=== PATIENT | male | born 1970 | race Two or more races ===

== ENCOUNTER 2022-12-07 12:57 | Inpatient (IN) | payer OTHER ==
[~2022-12-07] VITALS: Ht 172.7 cm; Wt 100.0 kg
[2022-12-07] MEDS ORDERED: SODIUM CHLORIDE 0.9% 1,000 ML IV ONE (13:15)
[2022-12-07 13:43] LABS: BASOPHILS % 0.1 % (0.0-2.0); HEMATOCRIT. 25.7 % (42.0-52.0); HEMOGLOBIN. 8.8 g/dL (14.0-18.0); LYMPHOCYTES % 9.2 % (20.0-50.0); MEAN CORPUSCULAR HEMOGLOBIN 36.4 pg (28.0-32.0); MEAN CORPUSCULAR VOLUME 106.2 fL (80.0-94.0); MEAN PLATELET VOLUME 7.5 fl (7.4-10.4); MONOCYTES % 5.6 % (2.0-8.0); NEUTROPHILS % 85.1 % (40.0-76.0); PLATELET 168 x1000/uL (130-400); RED BLOOD CELL COUNT 2.42 mill/uL (4.7-6.1); RED CELL DISTRIBUTION WIDTH 14.6 % (11.6-14.6)
[2022-12-07 13:53] LABS: CHLORIDE 99 mEq/L (98-107)
[2022-12-07 14:04] LABS: ETHANOL BLOOD < 10 mg/dL
[2022-12-07 14:07] LABS: INR 1.8; PROTHROMBIN TIME 18.5 sec (9.6-11.0)
[2022-12-07] MEDS ORDERED: FUROSEMIDE 40MG/4ML VIAL IVP NR (14:15)
[2022-12-07] MEDS ORDERED: SODIUM BICARBONATE 8.4% 1 MEQ/ML 50ML SYR IV NR (14:15)
[2022-12-07] MEDS ORDERED: ALBUTEROL (0.083%) 2.5MG/3ML NEB HHN NR (14:15)
[2022-12-07] MEDS ORDERED: LACTULOSE 20G/30ML UDC PO NR (14:30)
[2022-12-07] MEDS ORDERED: ONDANSETRON HCL 4MG/2ML INJ IV PRN (16:30)
[2022-12-07] MEDS ORDERED: DIPHENHYDRAMINE 50MG/ML VIAL IV PRN (16:30)
[2022-12-07] MEDS ORDERED: LORAZEPAM 2MG/ML CPJ IV PRN (16:30)
[2022-12-07] MEDS ORDERED: CLONIDINE 0.1MG TABLET PO PRN (16:30)
[2022-12-07] MEDS: MVI, ADULT NO.1 10 ML, FOLIC ACID 1 MG, THIAMINE HCL 100 MG in SODIUM CHLORIDE 0.9% 1,0... IV SCH ×4 (17:00)
[2022-12-07 19:25] LABS: CLARITY URINE CLEAR (CLEAR); COLOR URINE DARK YELLOW (YELLOW); KETONES URINE 1+ (NEGATIVE); LEUKOCYTE ESTERASE URINE NEGATIVE (NEGATIVE); NITRITE URINE NEGATIVE (NEGATIVE); OCCULT BLOOD URINE NEGATIVE (NEGATIVE); PH URINE 5.5 (4.5-8.0); PROTEIN URINE NEGATIVE (NEGATIVE); SPECIFIC GRAVITY URINE 1.015 (1.005-1.030)
[2022-12-07 21:37] VITALS: BP 123/75
[2022-12-07 22:00] VITALS: BP 123/75
[2022-12-07] MEDS: CHLORDIAZEPOXIDE 25MG CAPSULE PO SCH (22:00)
[2022-12-08] VITALS (56 sets, daily range): BP systolic 63–168; BP diastolic 35–99
[2022-12-08] MEDS: CHLORDIAZEPOXIDE 25MG CAPSULE PO SCH (06:00)
[2022-12-08 06:14] LABS: BASOPHILS % 0.2 % (0.0-2.0); HEMATOCRIT. 22.7 % (42.0-52.0); HEMOGLOBIN. 8.1 g/dL (14.0-18.0); LYMPHOCYTES % 9.1 % (20.0-50.0); MEAN CORPUSCULAR HEMOGLOBIN 37.4 pg (28.0-32.0); MEAN CORPUSCULAR VOLUME 104.5 fL (80.0-94.0); MEAN PLATELET VOLUME 7.5 fl (7.4-10.4); MONOCYTES % 5.3 % (2.0-8.0); NEUTROPHILS % 85.4 % (40.0-76.0); PLATELET 165 x1000/uL (130-400); RED BLOOD CELL COUNT 2.17 mill/uL (4.7-6.1); RED CELL DISTRIBUTION WIDTH 14.7 % (11.6-14.6)
[2022-12-08] MEDS ORDERED: ETOMIDATE 2MG/ML 10ML VIAL IV ONE (07:20)
[2022-12-08] MEDS ORDERED: VECURONIUM BROMIDE 10 MG/VIAL IV ONE (07:20)
[2022-12-08] MEDS ORDERED: SODIUM CHLORIDE 0.9% 10ML VIAL ONE (07:20)
[2022-12-08] MEDS ORDERED: PHYTONADIONE 10MG/ML AMP SUBCUT SCH (07:30)
[2022-12-08] MEDS: PANTOPRAZOLE SODIUM 40 MG/VIAL IV SCH ×2 (07:31→17:21)
[2022-12-08] MEDS ORDERED: OCTREOTIDE ACETATE 50 MCG/ML 1ML SUBCUT SCH (09:00)
[2022-12-08] MEDS ORDERED: LACTULOSE ENEMA 1,000ML BOTTLE PR SCH (09:00)
[2022-12-08 09:02] LABS: BG BASE EXCESS 2.5 mmol/L (-2.0-2.0); BG CARBOXYHEMOGLOBIN 0.3 % (0.5-1.5); BG DEOXYHEMOGLOBIN 1.6 % (0.0-5.0); BG FRACTION INSPIRED OXYGEN 28; BG HCO3 ACT 23.5 mmol/L (22.0-26.0); BG OXYGEN SATURATION 98.4 % (92.0-98.5); BG OXYHEMOGLOBIN 98.1 % (94.0-97.0); BG PCO2 23.7 mmHg (35.0-45.0); BG PH 7.614 (7.350-7.450); BG PO2 117.7 mmHg (75.0-100.0); BG SAMPLE SITE RIGHT RADIAL; BG TOTAL HEMOGLOBIN 8.1 g/dL (12.0-18.0); BG VENT MODE NASAL CANNULA
[2022-12-08 09:17] LABS: CHLORIDE 100 mEq/L (98-107)
[2022-12-08] MEDS ORDERED: CEFTRIAXONE 1 G PREMIX 50 ML IV SCH (09:45)
[2022-12-08] MEDS: OCTREOTIDE 1,000 MCG in SODIUM CHLORIDE 0.9% 100 ML IV SCH (11:14)
[2022-12-08] MEDS: CARVEDILOL 3.125 MG TABLET PO SCH ×2 (11:18→20:32)
[2022-12-08] MEDS ORDERED: NALOXONE HCL 0.4MG/ML VIAL IV PRN (11:30)
[2022-12-08] MEDS ORDERED: MORPHINE SULFATE 2 MG/ML CPJ (NOT FOR IM USE) IV PRN (11:30)
[2022-12-08] MEDS ORDERED: IPRATROPIUM/ALBUTEROL 0.5-3(2.5)MG/3ML NEB HHN PRN (12:15)
[2022-12-08] MEDS: CEFTRIAXONE 1,000 MG in DEXTROSE 5% WATER 50 ML IV SCH (12:22)
[2022-12-08] MEDS: METRONIDAZOLE 500 MG PREMIX 100 ML IV SCH ×2 (12:22→20:31)
[2022-12-08 12:43] LABS: BG BASE EXCESS 0.4 mmol/L (-2.0-2.0); BG CARBOXYHEMOGLOBIN 0.3 % (0.5-1.5); BG DEOXYHEMOGLOBIN 0.6 % (0.0-5.0); BG FRACTION INSPIRED OXYGEN 100; BG HCO3 ACT 22.6 mmol/L (22.0-26.0); BG METHEMOGLOBIN 0.7 % (0.0-1.5); BG OXYGEN SATURATION 99.4 % (92.0-98.5); BG OXYHEMOGLOBIN 98.4 % (94.0-97.0); BG PCO2 27.5 mmHg (35.0-45.0); BG PH 7.533 (7.350-7.450); BG PO2 472.9 mmHg (75.0-100.0); BG SAMPLE SITE RIGHT RADIAL; BG TOTAL HEMOGLOBIN 8.6 g/dL (12.0-18.0); BG VENT MODE VENT - AC
[2022-12-08 12:52] LABS: HEMATOCRIT 24.5 % (42.0-52.0); HEMOGLOBIN 8.8 g/dL (14.0-18.0)
[2022-12-08] MEDS ORDERED: ALBUMIN HUMAN 25GM/100ML (25%) IV NR (14:45)
[2022-12-08 15:06] LABS: VITAMIN B12 SERUM > 2000.0 pg/mL (211-911)
[2022-12-08] MEDS: LACTULOSE 20G/30ML UDC PO SCH ×2 (15:26→21:54)
[2022-12-08] MEDS: SODIUM CHLORIDE 0.9% 1,000 ML IV SCH (15:26)
[2022-12-08] MEDS: MVI, ADULT NO.1 10 ML, FOLIC ACID 1 MG, THIAMINE HCL 100 MG in SODIUM CHLORIDE 0.9% 1,0... IV SCH ×4 (17:21)
[2022-12-08] MEDS: PROPOFOL 10MG/ML 100ML 100 ML IV PRN (17:22)
[2022-12-08 17:39] LABS: *AMPHETAMINES SCREEN URINE NEGATIVE (NEGATIVE); *BARBITURATES SCREEN URINE NEGATIVE (NEGATIVE); *BENZODIAZEPINES SCREEN URINE NEGATIVE (NEGATIVE); *COCAINE SCREEN URINE NEGATIVE (NEGATIVE); CANNABINOID URINE SCREEN NEGATIVE (NEGATIVE); METHADONE URINE SCREEN NEGATIVE (NEGATIVE); OPIATES URINE SCREEN NEGATIVE (NEGATIVE); PHENCYCLIDINE URINE SCREEN NEGATIVE (NEGATIVE)
[2022-12-08 20:14] LABS: HEMATOCRIT 18.3 % (42.0-52.0); HEMOGLOBIN 6.3 g/dL (14.0-18.0)
[2022-12-08] MEDS: IPRATROPIUM/ALBUTEROL 0.5-3(2.5)MG/3ML NEB HHN SCH (20:38)
[2022-12-09] VITALS (100 sets, daily range): BP systolic 80–156; BP diastolic 39–92
[2022-12-09] MEDS ORDERED: FENTANYL CITRATE/PF 2,500 MCG in SODIUM CHLORIDE 0.9% 200 ML IV PRN ×2
[2022-12-09] MEDS: PROPOFOL 10MG/ML 100ML 100 ML IV PRN ×5 (00:35→16:09)
[2022-12-09] MEDS: PHENYLEPHRINE 100 MG in DEXT 5% WATER 240 ML IV PRN (01:07)
[2022-12-09] MEDS: IPRATROPIUM/ALBUTEROL 0.5-3(2.5)MG/3ML NEB HHN SCH ×4 (01:40→21:16)
[2022-12-09] MEDS: METRONIDAZOLE 500 MG PREMIX 100 ML IV SCH ×3 (02:32→18:09)
[2022-12-09 02:52] LABS: BASOPHILS % 0.4 % (0.0-2.0); EOSINOPHILS % 0.8 % (0.0-5.0); HEMOGLOBIN. 7.2 g/dL (14.0-18.0); MEAN CORPUSCULAR HEMOGLOBIN 35.7 pg (28.0-32.0); MEAN PLATELET VOLUME 7.9 fl (7.4-10.4); MONOCYTES % 5.9 % (2.0-8.0); NEUTROPHILS % 81.9 % (40.0-76.0); PLATELET 89 x1000/uL (130-400); RED BLOOD CELL COUNT 2.03 mill/uL (4.7-6.1); RED CELL DISTRIBUTION WIDTH 18.2 % (11.6-14.6)
[2022-12-09 03:02] LABS: HEMATOCRIT. 20.5 % (42.0-52.0); INR 1.9
[2022-12-09 03:03] LABS: CHLORIDE 103 mEq/L (98-107)
[2022-12-09 03:12] LABS: CREATINE KINASE 565 IU/L (39-308); PHOSPHORUS 5.2 mg/dL (2.5-4.9)
[2022-12-09] MEDS: LACTULOSE 20G/30ML UDC PO SCH ×4 (04:57→23:41)
[2022-12-09] MEDS: OCTREOTIDE 1,000 MCG in SODIUM CHLORIDE 0.9% 100 ML IV SCH (04:57)
[2022-12-09] MEDS: CARVEDILOL 3.125 MG TABLET PO SCH ×2 (08:13→21:00)
[2022-12-09 08:27] LABS: BG BASE EXCESS 1.5 mmol/L (-2.0-2.0); BG CARBOXYHEMOGLOBIN 0.2 % (0.5-1.5); BG DEOXYHEMOGLOBIN 1.7 % (0.0-5.0); BG FRACTION INSPIRED OXYGEN 40; BG METHEMOGLOBIN 0.7 % (0.0-1.5); BG OXYGEN SATURATION 98.3 % (92.0-98.5); BG OXYHEMOGLOBIN 97.4 % (94.0-97.0); BG PCO2 29.1 mmHg (35.0-45.0); BG PH 7.534 (7.350-7.450); BG PO2 130.4 mmHg (75.0-100.0); BG SAMPLE SITE RIGHT RADIAL; BG TOTAL HEMOGLOBIN 7.4 g/dL (12.0-18.0); BG VENT MODE VENT - AC
[2022-12-09] MEDS: PANTOPRAZOLE SODIUM 40 MG/VIAL IV SCH ×2 (08:55→18:08)
[2022-12-09] MEDS: SODIUM CHLORIDE 0.9% 1,000 ML IV SCH ×3 (10:28→23:40)
[2022-12-09] MEDS: CEFTRIAXONE 1,000 MG in DEXTROSE 5% WATER 50 ML IV SCH (10:28)
[2022-12-09] MEDS: ALBUMIN HUMAN 25GM/100ML (25%) IV SCH ×2 (11:50→18:08)
[2022-12-09] MEDS ORDERED: MIDAZOLAM HCL 5 MG/5 ML VIAL ONE (12:07)
[2022-12-09] MEDS ORDERED: ROCURONIUM BROMIDE 10MG/ML VIAL 5ML IV ONE (12:08)
[2022-12-09] MEDS ORDERED: PROPOFOL 200MG/20ML VIAL IV ONE (12:08)
[2022-12-09 12:45] LABS: HEMOGLOBIN 7.1 g/dL (14.0-18.0)
[2022-12-09 12:49] LABS: HEMATOCRIT 20.2 % (42.0-52.0)
[2022-12-09] MEDS ORDERED: SODIUM BICARBONATE 4% (2.4MEQ) 5ML VIAL IV ONE (13:39)
[2022-12-09] MEDS ORDERED: LIDOCAINE HCL 1% 30ML VIAL (10MG/ML) ONE (13:39)
[2022-12-09 17:22] LABS: BASOPHILS % 0.2 % (0.0-2.0); EOSINOPHILS % 2.6 % (0.0-5.0); HEMATOCRIT. 25.9 % (42.0-52.0); HEMOGLOBIN. 8.9 g/dL (14.0-18.0); LYMPHOCYTES % 16.2 % (20.0-50.0); MEAN CORPUSCULAR HEMOGLOBIN 33.6 pg (28.0-32.0); MEAN CORPUSCULAR VOLUME 98.2 fL (80.0-94.0); MEAN PLATELET VOLUME 7.6 fl (7.4-10.4); MONOCYTES % 7.9 % (2.0-8.0); NEUTROPHILS % 73.1 % (40.0-76.0); PLATELET 77 x1000/uL (130-400); RED BLOOD CELL COUNT 2.64 mill/uL (4.7-6.1); RED CELL DISTRIBUTION WIDTH 20.2 % (11.6-14.6)
[2022-12-09] MEDS: SUCRALFATE 1 G/10 ML UDC NG SCH (18:08)
[2022-12-09] MEDS: MIDAZOLAM HCL 100 MG in SODIUM CHLORIDE 0.9% 80 ML IV PRN (18:35)
[2022-12-10] VITALS (98 sets, daily range): BP systolic 85–129; BP diastolic 45–77
[2022-12-10] MEDS: SUCRALFATE 1 G/10 ML UDC NG SCH ×4 (00:29→18:01)
[2022-12-10] MEDS: ALBUMIN HUMAN 25GM/100ML (25%) IV SCH ×2 (01:03→07:09)
[2022-12-10] MEDS: OCTREOTIDE 1,000 MCG in SODIUM CHLORIDE 0.9% 100 ML IV SCH (01:03)
[2022-12-10] MEDS: IPRATROPIUM/ALBUTEROL 0.5-3(2.5)MG/3ML NEB HHN SCH ×4 (01:54→20:38)
[2022-12-10] MEDS: METRONIDAZOLE 500 MG PREMIX 100 ML IV SCH ×3 (03:11→18:01)
[2022-12-10 05:12] LABS: BASOPHILS % 0.3 % (0.0-2.0); EOSINOPHILS % 2.7 % (0.0-5.0); HEMATOCRIT. 21.6 % (42.0-52.0); HEMOGLOBIN. 7.6 g/dL (14.0-18.0); MEAN CORPUSCULAR HEMOGLOBIN 34.8 pg (28.0-32.0); MEAN CORPUSCULAR VOLUME 98.3 fL (80.0-94.0); MEAN PLATELET VOLUME 7.2 fl (7.4-10.4); MONOCYTES % 9.1 % (2.0-8.0); NEUTROPHILS % 69.9 % (40.0-76.0); PLATELET 58 x1000/uL (130-400); RED CELL DISTRIBUTION WIDTH 19.1 % (11.6-14.6)
[2022-12-10 05:24] LABS: INR 1.6
[2022-12-10 05:27] LABS: PHOSPHORUS 3.1 mg/dL (2.5-4.9)
[2022-12-10] MEDS: SODIUM CHLORIDE 0.9% 1,000 ML IV SCH ×2 (07:12→15:56)
[2022-12-10] MEDS: LACTULOSE 20G/30ML UDC PO SCH ×3 (07:12→21:53)
[2022-12-10 08:23] LABS: BG BASE EXCESS 2.3 mmol/L (-2.0-2.0); BG CARBOXYHEMOGLOBIN 1.1 % (0.5-1.5); BG DEOXYHEMOGLOBIN 3.1 % (0.0-5.0); BG FRACTION INSPIRED OXYGEN 35; BG METHEMOGLOBIN 0.5 % (0.0-1.5); BG OXYGEN SATURATION 96.8 % (92.0-98.5); BG OXYHEMOGLOBIN 95.3 % (94.0-97.0); BG PCO2 42.7 mmHg (35.0-45.0); BG PH 7.419 (7.350-7.450); BG PO2 101.1 mmHg (75.0-100.0); BG SAMPLE SITE RIGHT RADIAL; BG TOTAL HEMOGLOBIN 8.1 g/dL (12.0-18.0); BG VENT MODE VENT - AC
[2022-12-10] MEDS: CARVEDILOL 3.125 MG TABLET PO SCH ×2 (09:00→21:00)
[2022-12-10] MEDS: PANTOPRAZOLE SODIUM 40 MG/VIAL IV SCH ×2 (09:55→18:01)
[2022-12-10] MEDS: CEFTRIAXONE 1,000 MG in DEXTROSE 5% WATER 50 ML IV SCH (10:01)
[2022-12-10] MEDS: PHENYLEPHRINE 100 MG in DEXT 5% WATER 240 ML IV PRN (10:02)
[2022-12-10] MEDS: PHYTONADIONE 10MG/ML AMP SUBCUT SCH (13:41)
[2022-12-10] MEDS: MIDAZOLAM HCL 100 MG in SODIUM CHLORIDE 0.9% 80 ML IV PRN (15:51)
[2022-12-10 16:17] LABS: TOTAL IRON BINDING CAPACITY 126 ug/dL (250-450)
[2022-12-11] VITALS (95 sets, daily range): BP systolic 83–137; BP diastolic 37–72
[2022-12-11] MEDS: SUCRALFATE 1 G/10 ML UDC NG SCH ×4 (00:36→17:28)
[2022-12-11] MEDS: IPRATROPIUM/ALBUTEROL 0.5-3(2.5)MG/3ML NEB HHN SCH ×4 (02:20→20:16)
[2022-12-11] MEDS ORDERED: FENTANYL 2500MCG/250ML PMX 250 ML IV PRN (05:30)
[2022-12-11 05:45] LABS: BASOPHILS % 0.6 % (0.0-2.0); EOSINOPHILS % 3.6 % (0.0-5.0); HEMOGLOBIN. 8.7 g/dL (14.0-18.0); LYMPHOCYTES % 12.3 % (20.0-50.0); MEAN CORPUSCULAR VOLUME 100.5 fL (80.0-94.0); MEAN PLATELET VOLUME 7.5 fl (7.4-10.4); MONOCYTES % 10.8 % (2.0-8.0); NEUTROPHILS % 72.7 % (40.0-76.0); PLATELET 66 x1000/uL (130-400); RED BLOOD CELL COUNT 2.49 mill/uL (4.7-6.1)
[2022-12-11 05:47] LABS: CHLORIDE 113 mEq/L (98-107)
[2022-12-11] MEDS: METRONIDAZOLE 500 MG PREMIX 100 ML IV SCH ×3 (06:29→18:54)
[2022-12-11] MEDS: LACTULOSE 20G/30ML UDC PO SCH ×3 (06:30→21:44)
[2022-12-11] MEDS: SODIUM CHLORIDE 0.9% 1,000 ML IV SCH (06:31)
[2022-12-11 08:34] LABS: BG BASE EXCESS -0.6 mmol/L (-2.0-2.0); BG CARBOXYHEMOGLOBIN 0.8 % (0.5-1.5); BG DEOXYHEMOGLOBIN 3.6 % (0.0-5.0); BG FRACTION INSPIRED OXYGEN 30; BG HCO3 ACT 25.9 mmol/L (22.0-26.0); BG METHEMOGLOBIN 0.3 % (0.0-1.5); BG OXYGEN SATURATION 96.4 % (92.0-98.5); BG OXYHEMOGLOBIN 95.3 % (94.0-97.0); BG PCO2 51.7 mmHg (35.0-45.0); BG PH 7.317 (7.350-7.450); BG PO2 98.7 mmHg (75.0-100.0); BG SAMPLE SITE RIGHT RADIAL; BG TOTAL HEMOGLOBIN 9.7 g/dL (12.0-18.0); BG VENT MODE VENT - AC
[2022-12-11] MEDS: CARVEDILOL 3.125 MG TABLET PO SCH ×2 (09:00→21:00)
[2022-12-11] MEDS: PHYTONADIONE 10MG/ML AMP SUBCUT SCH (09:15)
[2022-12-11] MEDS: PANTOPRAZOLE SODIUM 40 MG/VIAL IV SCH ×2 (09:15→17:28)
[2022-12-11] MEDS: SODIUM CHLORIDE 0.45% 1,000 ML IV SCH (10:52)
[2022-12-11] MEDS: CEFTRIAXONE 1,000 MG in DEXTROSE 5% WATER 50 ML IV SCH (10:53)
[2022-12-11 12:34] LABS: BG BASE EXCESS -0.2 mmol/L (-2.0-2.0); BG CARBOXYHEMOGLOBIN 0.7 % (0.5-1.5); BG DEOXYHEMOGLOBIN 10.5 % (0.0-5.0); BG FRACTION INSPIRED OXYGEN 35; BG HCO3 ACT 26.6 mmol/L (22.0-26.0); BG METHEMOGLOBIN 0.4 % (0.0-1.5); BG OXYGEN SATURATION 89.4 % (92.0-98.5); BG OXYHEMOGLOBIN 88.4 % (94.0-97.0); BG PCO2 55.1 mmHg (35.0-45.0); BG PH 7.302 (7.350-7.450); BG PO2 64.3 mmHg (75.0-100.0); BG SAMPLE SITE RIGHT RADIAL; BG TOTAL HEMOGLOBIN 9.2 g/dL (12.0-18.0); BG VENT MODE VENT - CPAP
[2022-12-11] MEDS: METOCLOPRAMIDE HCL 10MG/2ML VIAL IV SCH ×2 (13:08→17:28)
[2022-12-11] MEDS: PHENYLEPHRINE 100 MG in DEXT 5% WATER 240 ML IV PRN (17:30)
[2022-12-12] VITALS (94 sets, daily range): BP systolic 74–142; BP diastolic 39–68
[2022-12-12] MEDS: METOCLOPRAMIDE HCL 10MG/2ML VIAL IV SCH ×4 (00:23→17:36)
[2022-12-12] MEDS: SUCRALFATE 1 G/10 ML UDC NG SCH ×4 (00:23→17:36)
[2022-12-12] MEDS: IPRATROPIUM/ALBUTEROL 0.5-3(2.5)MG/3ML NEB HHN SCH ×4 (02:06→20:06)
[2022-12-12 05:31] LABS: BASOPHILS % 0.4 % (0.0-2.0); EOSINOPHILS % 3.7 % (0.0-5.0); HEMATOCRIT. 23.8 % (42.0-52.0); HEMOGLOBIN. 8.1 g/dL (14.0-18.0); LYMPHOCYTES % 12.8 % (20.0-50.0); MEAN CORPUSCULAR HEMOGLOBIN 34.3 pg (28.0-32.0); MEAN CORPUSCULAR VOLUME 101.1 fL (80.0-94.0); MEAN PLATELET VOLUME 7.7 fl (7.4-10.4); MONOCYTES % 12.2 % (2.0-8.0); NEUTROPHILS % 70.9 % (40.0-76.0); PLATELET 60 x1000/uL (130-400); RED BLOOD CELL COUNT 2.36 mill/uL (4.7-6.1); RED CELL DISTRIBUTION WIDTH 19.7 % (11.6-14.6)
[2022-12-12] MEDS: METRONIDAZOLE 500 MG PREMIX 100 ML IV SCH ×3 (05:38→18:43)
[2022-12-12] MEDS: SODIUM CHLORIDE 0.45% 1,000 ML IV SCH (05:50)
[2022-12-12] MEDS: LACTULOSE 20G/30ML UDC PO SCH ×3 (05:51→21:29)
[2022-12-12 05:55] LABS: CHLORIDE 118 mEq/L (98-107)
[2022-12-12 06:02] LABS: PHOSPHORUS 1.6 mg/dL (2.5-4.9)
[2022-12-12 08:24] LABS: BG BASE EXCESS 1.4 mmol/L (-2.0-2.0); BG CARBOXYHEMOGLOBIN 0.1 % (0.5-1.5); BG DEOXYHEMOGLOBIN 3.6 % (0.0-5.0); BG FRACTION INSPIRED OXYGEN 35; BG HCO3 ACT 26.4 mmol/L (22.0-26.0); BG METHEMOGLOBIN 0.1 % (0.0-1.5); BG OXYGEN SATURATION 96.4 % (92.0-98.5); BG OXYHEMOGLOBIN 96.2 % (94.0-97.0); BG PCO2 43.5 mmHg (35.0-45.0); BG PH 7.401 (7.350-7.450); BG PO2 93.8 mmHg (75.0-100.0); BG SAMPLE SITE RIGHT RADIAL; BG TOTAL HEMOGLOBIN 8.7 g/dL (12.0-18.0); BG VENT MODE VENT - AC
[2022-12-12] MEDS: CARVEDILOL 3.125 MG TABLET PO SCH ×2 (09:00→20:36)
[2022-12-12] MEDS: PANTOPRAZOLE SODIUM 40 MG/VIAL IV SCH ×2 (09:04→17:36)
[2022-12-12] MEDS: DEXTROSE 5% WATER 1,000 ML IV SCH ×2 (09:05→21:38)
[2022-12-12] MEDS: MIDODRINE HCL 5MG TABLET PO SCH ×3 (09:05→17:36)
[2022-12-12] MEDS ORDERED: POTASSIUM PHOS,M-BASIC-D-BASIC 15 MMOL in DEXT 5% WATER 245 ML IV NR (10:00)
[2022-12-12] MEDS: CEFTRIAXONE 1,000 MG in DEXTROSE 5% WATER 50 ML IV SCH (10:31)
[2022-12-13] VITALS (90 sets, daily range): BP systolic 106–141; BP diastolic 46–69
[2022-12-13] MEDS: METOCLOPRAMIDE HCL 10MG/2ML VIAL IV SCH ×4 (00:17→17:51)
[2022-12-13] MEDS: SUCRALFATE 1 G/10 ML UDC NG SCH ×4 (00:17→17:50)
[2022-12-13] MEDS: IPRATROPIUM/ALBUTEROL 0.5-3(2.5)MG/3ML NEB HHN SCH ×3 (01:28→14:13)
[2022-12-13] MEDS: METRONIDAZOLE 500 MG PREMIX 100 ML IV SCH (03:28)
[2022-12-13 05:57] LABS: CHLORIDE 116 mEq/L (98-107)
[2022-12-13 06:01] LABS: BASOPHILS % 0.6 % (0.0-2.0); EOSINOPHILS % 3.8 % (0.0-5.0); HEMATOCRIT. 25.3 % (42.0-52.0); HEMOGLOBIN. 8.8 g/dL (14.0-18.0); LYMPHOCYTES % 11.1 % (20.0-50.0); MEAN CORPUSCULAR HEMOGLOBIN 34.9 pg (28.0-32.0); MEAN CORPUSCULAR VOLUME 100.6 fL (80.0-94.0); MEAN PLATELET VOLUME 7.8 fl (7.4-10.4); MONOCYTES % 11.3 % (2.0-8.0); NEUTROPHILS % 73.2 % (40.0-76.0); PLATELET 64 x1000/uL (130-400); RED BLOOD CELL COUNT 2.51 mill/uL (4.7-6.1); RED CELL DISTRIBUTION WIDTH 19.2 % (11.6-14.6)
[2022-12-13] MEDS: LACTULOSE 20G/30ML UDC PO SCH ×3 (06:09→21:29)
[2022-12-13] MEDS: PHENYLEPHRINE 100 MG in DEXT 5% WATER 240 ML IV PRN (06:10)
[2022-12-13] MEDS: CARVEDILOL 3.125 MG TABLET PO SCH ×2 (08:45→21:00)
[2022-12-13] MEDS: RIFAXIMIN 550 MG TABLET PO SCH ×2 (08:55→21:29)
[2022-12-13] MEDS: PANTOPRAZOLE SODIUM 40 MG/VIAL IV SCH ×2 (08:55→17:50)
[2022-12-13] MEDS: MIDODRINE HCL 5MG TABLET PO SCH ×3 (08:55→17:51)
[2022-12-13] MEDS: DEXTROSE 5% WATER 1,000 ML IV SCH (10:59)
[2022-12-14] VITALS (72 sets, daily range): BP systolic 103–145; BP diastolic 46–79
[2022-12-14] MEDS: METOCLOPRAMIDE HCL 10MG/2ML VIAL IV SCH ×4 (00:15→17:20)
[2022-12-14] MEDS: SUCRALFATE 1 G/10 ML UDC NG SCH ×4 (00:15→17:20)
[2022-12-14] MEDS: DEXTROSE 5% WATER 1,000 ML IV SCH ×2 (00:16→13:06)
[2022-12-14] MEDS: LACTULOSE 20G/30ML UDC PO SCH ×3 (05:22→22:32)
[2022-12-14 05:36] LABS: BASOPHILS % 0.5 % (0.0-2.0); EOSINOPHILS % 3.7 % (0.0-5.0); HEMATOCRIT. 27.1 % (42.0-52.0); HEMOGLOBIN. 9.2 g/dL (14.0-18.0); MEAN CORPUSCULAR HEMOGLOBIN 34.9 pg (28.0-32.0); MEAN CORPUSCULAR VOLUME 102.3 fL (80.0-94.0); MEAN PLATELET VOLUME 7.7 fl (7.4-10.4); MONOCYTES % 13.2 % (2.0-8.0); NEUTROPHILS % 65.6 % (40.0-76.0); PLATELET 73 x1000/uL (130-400); RED BLOOD CELL COUNT 2.65 mill/uL (4.7-6.1); RED CELL DISTRIBUTION WIDTH 19.9 % (11.6-14.6)
[2022-12-14 05:49] LABS: CHLORIDE 118 mEq/L (98-107)
[2022-12-14] MEDS: PHENYLEPHRINE 100 MG in DEXT 5% WATER 240 ML IV PRN (06:42)
[2022-12-14 08:19] LABS: BG BASE EXCESS 2.1 mmol/L (-2.0-2.0); BG CARBOXYHEMOGLOBIN 0.5 % (0.5-1.5); BG DEOXYHEMOGLOBIN 1.9 % (0.0-5.0); BG FRACTION INSPIRED OXYGEN 35; BG HCO3 ACT 26.5 mmol/L (22.0-26.0); BG METHEMOGLOBIN 0.3 % (0.0-1.5); BG OXYGEN SATURATION 98.1 % (92.0-98.5); BG OXYHEMOGLOBIN 97.3 % (94.0-97.0); BG PCO2 40.9 mmHg (35.0-45.0); BG PO2 120.9 mmHg (75.0-100.0); BG SAMPLE SITE RIGHT RADIAL; BG TOTAL HEMOGLOBIN 9.2 g/dL (12.0-18.0); BG VENT MODE VENT - SIMV
[2022-12-14] MEDS: CARVEDILOL 3.125 MG TABLET PO SCH ×2 (08:44→22:33)
[2022-12-14] MEDS: MIDODRINE HCL 5MG TABLET PO SCH ×3 (09:00→17:20)
[2022-12-14] MEDS: PANTOPRAZOLE SODIUM 40 MG/VIAL IV SCH ×2 (09:19→17:20)
[2022-12-14] MEDS: RIFAXIMIN 550 MG TABLET PO SCH ×2 (09:19→22:32)
[2022-12-14] MEDS ORDERED: IPRATROPIUM/ALBUTEROL 0.5-3(2.5)MG/3ML NEB HHN PRN (10:30)
[2022-12-14] MEDS: IPRATROPIUM/ALBUTEROL 0.5-3(2.5)MG/3ML NEB HHN SCH ×2 (14:09→21:10)
[2022-12-14 15:14] LABS: BG BASE EXCESS 1.9 mmol/L (-2.0-2.0); BG FRACTION INSPIRED OXYGEN 35; BG HCO3 ACT 26.3 mmol/L (22.0-26.0); BG METHEMOGLOBIN 0.2 % (0.0-1.5); BG OXYHEMOGLOBIN 95.8 % (94.0-97.0); BG PCO2 40.7 mmHg (35.0-45.0); BG PH 7.429 (7.350-7.450); BG PO2 86.5 mmHg (75.0-100.0); BG SAMPLE SITE RIGHT RADIAL; BG TOTAL HEMOGLOBIN 9.1 g/dL (12.0-18.0); BG VENT MODE VENT - CPAP
[2022-12-15] VITALS (31 sets, daily range): BP systolic 103–151; BP diastolic 30–80
[2022-12-15] MEDS: METOCLOPRAMIDE HCL 10MG/2ML VIAL IV SCH ×4 (01:14→16:59)
[2022-12-15] MEDS: SUCRALFATE 1 G/10 ML UDC NG SCH ×4 (01:14→17:00)
[2022-12-15] MEDS: DEXTROSE 5% WATER 1,000 ML IV SCH ×2 (01:15→16:18)
[2022-12-15] MEDS: IPRATROPIUM/ALBUTEROL 0.5-3(2.5)MG/3ML NEB HHN SCH ×4 (02:56→21:51)
[2022-12-15] MEDS: LACTULOSE 20G/30ML UDC PO SCH ×3 (05:04→21:51)
[2022-12-15 06:04] LABS: CHLORIDE 118 mEq/L (98-107)
[2022-12-15 09:17] LABS: BG BASE EXCESS -0.8 mmol/L (-2.0-2.0); BG CARBOXYHEMOGLOBIN 0.3 % (0.5-1.5); BG DEOXYHEMOGLOBIN 2.2 % (0.0-5.0); BG FRACTION INSPIRED OXYGEN 35; BG METHEMOGLOBIN 0.3 % (0.0-1.5); BG OXYGEN SATURATION 97.8 % (92.0-98.5); BG OXYHEMOGLOBIN 97.2 % (94.0-97.0); BG PCO2 34.3 mmHg (35.0-45.0); BG PH 7.445 (7.350-7.450); BG PO2 108.3 mmHg (75.0-100.0); BG SAMPLE SITE RIGHT RADIAL; BG TOTAL HEMOGLOBIN 8.7 g/dL (12.0-18.0); BG VENT MODE VENT - CPAP
[2022-12-15 09:20] LABS: BASOPHILS % 0.5 % (0.0-2.0); HEMATOCRIT. 23.9 % (42.0-52.0); HEMOGLOBIN. 7.9 g/dL (14.0-18.0); LYMPHOCYTES % 15.4 % (20.0-50.0); MEAN CORPUSCULAR HEMOGLOBIN 33.7 pg (28.0-32.0); MEAN CORPUSCULAR VOLUME 102.3 fL (80.0-94.0); MONOCYTES % 11.6 % (2.0-8.0); NEUTROPHILS % 70.5 % (40.0-76.0); RED BLOOD CELL COUNT 2.34 mill/uL (4.7-6.1); RED CELL DISTRIBUTION WIDTH 20.4 % (11.6-14.6)
[2022-12-15 09:22] LABS: PLATELET 60 x1000/uL (130-400)
[2022-12-15] MEDS: RIFAXIMIN 550 MG TABLET PO SCH ×2 (10:03→21:51)
[2022-12-15] MEDS: CARVEDILOL 3.125 MG TABLET PO SCH ×2 (10:03→21:00)
[2022-12-15] MEDS: PANTOPRAZOLE SODIUM 40 MG/VIAL IV SCH ×2 (10:03→16:34)
[2022-12-15] MEDS: MIDODRINE HCL 5MG TABLET PO SCH ×3 (10:04→16:34)
[2022-12-15] MEDS: ACETAMINOPHEN 325MG TABLET PO PRN (21:54)
[2022-12-16] VITALS (28 sets, daily range): BP systolic 95–162; BP diastolic 43–117
[2022-12-16] MEDS: METOCLOPRAMIDE HCL 10MG/2ML VIAL IV SCH ×5 (00:47→23:59)
[2022-12-16] MEDS: SUCRALFATE 1 G/10 ML UDC NG SCH ×5 (00:48→23:59)
[2022-12-16] MEDS: IPRATROPIUM/ALBUTEROL 0.5-3(2.5)MG/3ML NEB HHN SCH ×4 (02:45→21:13)
[2022-12-16 05:44] LABS: BASOPHILS % 0.5 % (0.0-2.0); EOSINOPHILS % 2.3 % (0.0-5.0); HEMATOCRIT. 24.4 % (42.0-52.0); HEMOGLOBIN. 8.3 g/dL (14.0-18.0); LYMPHOCYTES % 18.7 % (20.0-50.0); MEAN CORPUSCULAR HEMOGLOBIN 35.4 pg (28.0-32.0); MEAN CORPUSCULAR VOLUME 104.5 fL (80.0-94.0); MEAN PLATELET VOLUME 8.6 fl (7.4-10.4); MONOCYTES % 11.3 % (2.0-8.0); NEUTROPHILS % 67.2 % (40.0-76.0); PLATELET 67 x1000/uL (130-400); RED BLOOD CELL COUNT 2.33 mill/uL (4.7-6.1)
[2022-12-16 05:51] LABS: CHLORIDE 117 mEq/L (98-107)
[2022-12-16 05:55] LABS: INR 1.8; PROTHROMBIN TIME 18.8 sec (9.6-11.0)
[2022-12-16] MEDS: DEXTROSE 5% WATER 1,000 ML IV SCH (06:20)
[2022-12-16] MEDS: LACTULOSE 20G/30ML UDC PO SCH ×3 (06:35→21:17)
[2022-12-16 08:11] LABS: BG BASE EXCESS -0.3 mmol/L (-2.0-2.0); BG CARBOXYHEMOGLOBIN 0.3 % (0.5-1.5); BG DEOXYHEMOGLOBIN 2.9 % (0.0-5.0); BG FRACTION INSPIRED OXYGEN 35; BG HCO3 ACT 23.7 mmol/L (22.0-26.0); BG METHEMOGLOBIN 0.8 % (0.0-1.5); BG OXYGEN SATURATION 97.1 % (92.0-98.5); BG PH 7.436 (7.350-7.450); BG PO2 102.4 mmHg (75.0-100.0); BG SAMPLE SITE RIGHT RADIAL; BG VENT MODE VENT - CPAP
[2022-12-16] MEDS: PANTOPRAZOLE SODIUM 40 MG/VIAL IV SCH ×2 (08:34→17:00)
[2022-12-16] MEDS: MIDODRINE HCL 5MG TABLET PO SCH ×3 (08:35→17:00)
[2022-12-16] MEDS: RIFAXIMIN 550 MG TABLET PO SCH ×2 (08:35→21:17)
[2022-12-16] MEDS: CARVEDILOL 3.125 MG TABLET PO SCH ×2 (08:35→21:18)
[2022-12-16] MEDS ORDERED: FUROSEMIDE 40MG/4ML VIAL IVP NR (12:30)
[2022-12-17] VITALS: BP 125/63
[2022-12-17] MEDS: IPRATROPIUM/ALBUTEROL 0.5-3(2.5)MG/3ML NEB HHN SCH ×4 (01:16→21:00)
[2022-12-17 04:00] VITALS: BP 106/46
[2022-12-17] MEDS: LACTULOSE 20G/30ML UDC PO SCH ×3 (05:55→21:19)
[2022-12-17] MEDS: METOCLOPRAMIDE HCL 10MG/2ML VIAL IV SCH ×3 (05:55→17:27)
[2022-12-17] MEDS: SUCRALFATE 1 G/10 ML UDC NG SCH ×3 (05:55→17:27)
[2022-12-17 06:06] LABS: CHLORIDE 118 mEq/L (98-107)
[2022-12-17 06:25] LABS: BASOPHILS % 0.7 % (0.0-2.0); EOSINOPHILS % 2.3 % (0.0-5.0); HEMATOCRIT. 25.2 % (42.0-52.0); HEMOGLOBIN. 8.5 g/dL (14.0-18.0); LYMPHOCYTES % 16.7 % (20.0-50.0); MEAN CORPUSCULAR HEMOGLOBIN 35.3 pg (28.0-32.0); MEAN CORPUSCULAR VOLUME 105.2 fL (80.0-94.0); MEAN PLATELET VOLUME 9.1 fl (7.4-10.4); MONOCYTES % 8.1 % (2.0-8.0); NEUTROPHILS % 72.2 % (40.0-76.0); PLATELET 79 x1000/uL (130-400); RED BLOOD CELL COUNT 2.39 mill/uL (4.7-6.1); RED CELL DISTRIBUTION WIDTH 20.3 % (11.6-14.6)
[2022-12-17 08:00] VITALS: BP 119/57
[2022-12-17] MEDS: CARVEDILOL 3.125 MG TABLET PO SCH ×2 (08:20→23:15)
[2022-12-17] MEDS: PANTOPRAZOLE SODIUM 40 MG/VIAL IV SCH ×2 (08:20→17:27)
[2022-12-17] MEDS: RIFAXIMIN 550 MG TABLET PO SCH ×2 (08:20→21:16)
[2022-12-17] MEDS: MIDODRINE HCL 5MG TABLET PO SCH ×3 (08:21→17:28)
[2022-12-17] MEDS: ACETAMINOPHEN 325MG TABLET PO PRN (08:22)
[2022-12-17 09:41] LABS: BG BASE EXCESS 2.1 mmol/L (-2.0-2.0); BG CARBOXYHEMOGLOBIN 0.6 % (0.5-1.5); BG DEOXYHEMOGLOBIN 1.5 % (0.0-5.0); BG FRACTION INSPIRED OXYGEN 32; BG HCO3 ACT 26.2 mmol/L (22.0-26.0); BG METHEMOGLOBIN 0.4 % (0.0-1.5); BG OXYGEN SATURATION 98.5 % (92.0-98.5); BG OXYHEMOGLOBIN 97.5 % (94.0-97.0); BG PCO2 38.6 mmHg (35.0-45.0); BG PH 7.449 (7.350-7.450); BG PO2 135.3 mmHg (75.0-100.0); BG SAMPLE SITE RIGHT RADIAL; BG TOTAL HEMOGLOBIN 8.8 g/dL (12.0-18.0); BG VENT MODE NASAL CANNULA
[2022-12-17 16:00] VITALS: BP 122/63
[2022-12-17] MEDS ORDERED: ALBUMIN HUMAN 25GM/100ML (25%) IV SCH (18:00)
[2022-12-17 20:00] VITALS: BP 106/56
[2022-12-17] MEDS: ALBUMIN HUMAN 25GM/100ML (25%) IV SCH (21:14)
[2022-12-18] VITALS: BP 131/67
[2022-12-18] MEDS: IPRATROPIUM/ALBUTEROL 0.5-3(2.5)MG/3ML NEB HHN SCH ×3 (01:20→14:32)
[2022-12-18] MEDS: SUCRALFATE 1 G/10 ML UDC NG SCH ×4 (01:33→17:35)
[2022-12-18] MEDS: METOCLOPRAMIDE HCL 10MG/2ML VIAL IV SCH ×3 (01:33→17:36)
[2022-12-18] MEDS: ALBUMIN HUMAN 25GM/100ML (25%) IV SCH ×3 (03:13→16:40)
[2022-12-18 04:00] VITALS: BP 102/49
[2022-12-18] MEDS: LACTULOSE 20G/30ML UDC PO SCH ×3 (06:22→21:38)
[2022-12-18 06:32] LABS: CHLORIDE 119 mEq/L (98-107)
[2022-12-18 06:41] LABS: BASOPHILS % 0.4 % (0.0-2.0); EOSINOPHILS % 2.7 % (0.0-5.0); HEMATOCRIT. 22.6 % (42.0-52.0); HEMOGLOBIN. 7.7 g/dL (14.0-18.0); LYMPHOCYTES % 22.8 % (20.0-50.0); MEAN CORPUSCULAR HEMOGLOBIN 35.4 pg (28.0-32.0); MEAN CORPUSCULAR VOLUME 104.1 fL (80.0-94.0); MEAN PLATELET VOLUME 9.6 fl (7.4-10.4); MONOCYTES % 7.4 % (2.0-8.0); NEUTROPHILS % 66.7 % (40.0-76.0); PLATELET 68 x1000/uL (130-400); RED BLOOD CELL COUNT 2.17 mill/uL (4.7-6.1); RED CELL DISTRIBUTION WIDTH 21.2 % (11.6-14.6)
[2022-12-18 08:00] VITALS: BP 118/54
[2022-12-18] MEDS: MIDODRINE HCL 5MG TABLET PO SCH ×3 (10:22→17:36)
[2022-12-18] MEDS: RIFAXIMIN 550 MG TABLET PO SCH (10:22)
[2022-12-18] MEDS: PANTOPRAZOLE SODIUM 40 MG/VIAL IV SCH ×2 (10:23→17:36)
[2022-12-18] MEDS: CARVEDILOL 3.125 MG TABLET PO SCH ×2 (10:23→21:36)
[2022-12-18 12:00] VITALS: BP 101/50
[2022-12-18 16:00] VITALS: BP 123/60
[2022-12-18 20:00] VITALS: BP 137/66
[2022-12-19] VITALS: BP 136/70
[2022-12-19] MEDS: SUCRALFATE 1 G/10 ML UDC NG SCH ×4 (00:29→18:23)
[2022-12-19] MEDS: METOCLOPRAMIDE HCL 10MG/2ML VIAL IV SCH ×4 (00:30→18:28)
[2022-12-19 04:00] VITALS: BP 117/57
[2022-12-19 06:19] LABS: BASOPHILS % 0.5 % (0.0-2.0); EOSINOPHILS % 2.2 % (0.0-5.0); HEMATOCRIT. 25.4 % (42.0-52.0); HEMOGLOBIN. 8.4 g/dL (14.0-18.0); MEAN CORPUSCULAR HEMOGLOBIN 34.5 pg (28.0-32.0); MEAN PLATELET VOLUME 9.6 fl (7.4-10.4); NEUTROPHILS % 68.3 % (40.0-76.0); PLATELET 77 x1000/uL (130-400); RED BLOOD CELL COUNT 2.42 mill/uL (4.7-6.1); RED CELL DISTRIBUTION WIDTH 21.6 % (11.6-14.6)
[2022-12-19 06:20] LABS: CHLORIDE 112 mEq/L (98-107)
[2022-12-19] MEDS: LACTULOSE 20G/30ML UDC PO SCH ×3 (07:30→18:23)
[2022-12-19 08:00] VITALS: BP 128/55
[2022-12-19] MEDS: CARVEDILOL 3.125 MG TABLET PO SCH ×2 (10:08→20:30)
[2022-12-19] MEDS: PANTOPRAZOLE SODIUM 40 MG/VIAL IV SCH ×2 (10:09→18:26)
[2022-12-19] MEDS: MIDODRINE HCL 5MG TABLET PO SCH ×3 (10:09→18:24)
[2022-12-19 12:00] VITALS: BP 135/58
[2022-12-19 16:00] VITALS: BP 114/58
[2022-12-19 20:00] VITALS: BP 132/66
[2022-12-19] MEDS: GUAIFENESIN 600MG ER TABLET PO SCH (20:31)
[2022-12-20] VITALS: BP 146/72
[2022-12-20] MEDS: METOCLOPRAMIDE HCL 10MG/2ML VIAL IV SCH ×4 (00:26→17:23)
[2022-12-20] MEDS: SUCRALFATE 1 G/10 ML UDC NG SCH ×4 (00:26→17:22)
[2022-12-20] MEDS: LACTULOSE 20G/30ML UDC PO SCH ×4 (00:26→17:22)
[2022-12-20 04:00] VITALS: BP 142/78
[2022-12-20 08:00] VITALS: BP 120/79
[2022-12-20 08:03] LABS: BASOPHILS % 0.3 % (0.0-2.0); EOSINOPHILS % 0.9 % (0.0-5.0); LYMPHOCYTES % 12.9 % (20.0-50.0); MEAN CORPUSCULAR HEMOGLOBIN 35.4 pg (28.0-32.0); MEAN PLATELET VOLUME 9.7 fl (7.4-10.4); MONOCYTES % 6.1 % (2.0-8.0); NEUTROPHILS % 79.8 % (40.0-76.0); PLATELET 109 x1000/uL (130-400); RED BLOOD CELL COUNT 2.98 mill/uL (4.7-6.1); RED CELL DISTRIBUTION WIDTH 22.7 % (11.6-14.6)
[2022-12-20 08:06] LABS: INR 1.9; PROTHROMBIN TIME 19.4 sec (9.6-11.0)
[2022-12-20 08:14] LABS: CHLORIDE 108 mEq/L (98-107)
[2022-12-20 08:18] LABS: HEMOGLOBIN. 10.6 g/dL (14.0-18.0)
[2022-12-20 08:19] LABS: HEMATOCRIT. 31.9 % (42.0-52.0)
[2022-12-20] MEDS: PANTOPRAZOLE SODIUM 40 MG/VIAL IV SCH ×2 (08:57→17:24)
[2022-12-20] MEDS: GUAIFENESIN 600MG ER TABLET PO SCH ×2 (08:57→20:53)
[2022-12-20] MEDS: CARVEDILOL 3.125 MG TABLET PO SCH ×2 (08:57→20:55)
[2022-12-20] MEDS: MIDODRINE HCL 5MG TABLET PO SCH ×3 (09:00→17:24)
[2022-12-20 12:00] VITALS: BP 145/75
[2022-12-20] MEDS: FUROSEMIDE 40MG/4ML VIAL IVP SCH (13:49)
[2022-12-20 15:56] LABS: PLATELET ESTIMATE DECREASED
[2022-12-20 16:00] VITALS: BP 125/66
[2022-12-20 20:00] VITALS: BP 113/64
[2022-12-21] VITALS: BP 119/65
[2022-12-21] MEDS: LACTULOSE 20G/30ML UDC PO SCH ×4 (00:14→17:28)
[2022-12-21] MEDS: SUCRALFATE 1 G/10 ML UDC NG SCH ×4 (00:14→17:28)
[2022-12-21] MEDS: METOCLOPRAMIDE HCL 10MG/2ML VIAL IV SCH ×4 (00:14→17:27)
[2022-12-21 04:00] VITALS: BP 121/67
[2022-12-21 08:00] VITALS: BP 107/50
[2022-12-21] MEDS: FUROSEMIDE 40MG/4ML VIAL IVP SCH (10:04)
[2022-12-21] MEDS: PANTOPRAZOLE SODIUM 40 MG/VIAL IV SCH ×2 (10:04→17:27)
[2022-12-21] MEDS: CARVEDILOL 3.125 MG TABLET PO SCH ×2 (10:04→21:28)
[2022-12-21] MEDS: GUAIFENESIN 600MG ER TABLET PO SCH ×2 (10:05→21:27)
[2022-12-21] MEDS: MIDODRINE HCL 5MG TABLET PO SCH ×3 (10:05→17:27)
[2022-12-21 12:00] VITALS: BP 98/54
[2022-12-21 16:00] VITALS: BP 108/52
[2022-12-21 16:23] LABS: INR 2.3
[2022-12-21 20:00] VITALS: BP 120/57
[2022-12-22] VITALS: BP 107/39
[2022-12-22] MEDS: LACTULOSE 20G/30ML UDC PO SCH ×4 (00:01→20:08)
[2022-12-22] MEDS: SUCRALFATE 1 G/10 ML UDC NG SCH ×4 (00:01→17:55)
[2022-12-22] MEDS: METOCLOPRAMIDE HCL 10MG/2ML VIAL IV SCH ×3 (00:01→14:49)
[2022-12-22 04:00] VITALS: BP 98/49
[2022-12-22 06:57] LABS: INR 2.1; PROTHROMBIN TIME 21.9 sec (9.6-11.0)
[2022-12-22 08:00] VITALS: BP 123/65
[2022-12-22] MEDS: FUROSEMIDE 40MG/4ML VIAL IVP SCH (09:48)
[2022-12-22] MEDS: PANTOPRAZOLE SODIUM 40 MG/VIAL IV SCH ×2 (09:48→17:55)
[2022-12-22] MEDS: MIDODRINE HCL 5MG TABLET PO SCH ×3 (09:48→17:56)
[2022-12-22] MEDS: CARVEDILOL 3.125 MG TABLET PO SCH ×2 (09:49→21:00)
[2022-12-22] MEDS: GUAIFENESIN 600MG ER TABLET PO SCH ×2 (09:50→21:18)
[2022-12-22 12:00] VITALS: BP 124/65
[2022-12-22 16:00] VITALS: BP 109/68
[2022-12-22 20:00] VITALS: BP 104/53
[2022-12-22] MEDS: ALBUMIN HUMAN 25GM/100ML (25%) IV SCH (20:07)
[2022-12-23] VITALS (12 sets, daily range): BP systolic 95–120; BP diastolic 45–64
[2022-12-23] MEDS: SUCRALFATE 1 G/10 ML UDC NG SCH ×4 (00:04→18:26)
[2022-12-23] MEDS: ALBUMIN HUMAN 25GM/100ML (25%) IV SCH (02:05)
[2022-12-23] MEDS: LACTULOSE 20G/30ML UDC PO SCH ×2 (04:00→12:00)
[2022-12-23] MEDS: GUAIFENESIN 600MG ER TABLET PO SCH (08:15)
[2022-12-23] MEDS: FUROSEMIDE 40MG/4ML VIAL IVP SCH (08:15)
[2022-12-23] MEDS: MIDODRINE HCL 5MG TABLET PO SCH ×3 (08:15→18:26)
[2022-12-23] MEDS: CARVEDILOL 3.125 MG TABLET PO SCH (08:15)
[2022-12-23] MEDS: PANTOPRAZOLE SODIUM 40 MG/VIAL IV SCH ×2 (08:15→18:26)
[2022-12-23 10:10] LABS: BASOPHILS % 0.7 % (0.0-2.0); EOSINOPHILS % 2.8 % (0.0-5.0); MEAN CORPUSCULAR HEMOGLOBIN 36.7 pg (28.0-32.0); MEAN CORPUSCULAR VOLUME 106.1 fL (80.0-94.0); MEAN PLATELET VOLUME 9.3 fl (7.4-10.4); MONOCYTES % 11.7 % (2.0-8.0); NEUTROPHILS % 55.8 % (40.0-76.0); PLATELET 69 x1000/uL (130-400); RED CELL DISTRIBUTION WIDTH 23.8 % (11.6-14.6)
[2022-12-23 10:15] LABS: CHLORIDE 108 mEq/L (98-107)
[2022-12-23 10:17] LABS: PROTHROMBIN TIME 20.2 sec (9.6-11.0)
[2022-12-23 10:24] LABS: HEMATOCRIT. 20.2 % (42.0-52.0)
[2022-12-23] MEDS ORDERED: POTASSIUM CHLORIDE INJ 40 MEQ in DEXT 5% WATER 250 ML IV ONE (12:15)
[2022-12-23] MEDS ORDERED: POTASSIUM CHLORIDE 20MEQ TABLET SR PO NR (12:30)
[2022-12-23] MEDS: KCL 20MEQ/100ML X 2 FOR TOTAL KCL 40MEQ/200ML IV SCH ×2 (13:50→15:42)
[2022-12-23 15:39] LABS: HEMATOCRIT 23.8 % (42.0-52.0); MEAN CORPUSCULAR HEMOGLOBIN 36.4 pg (28.0-32.0); MEAN CORPUSCULAR VOLUME 108.3 fL (80.0-94.0); PLATELET 81 x1000/uL (130-400); RED CELL DISTRIBUTION WIDTH 23.9 % (11.6-14.6)
[2022-12-23] MEDS ORDERED: SPIR25TA6 MT (16:58)
[2022-12-23] MEDS ORDERED: LACT10SO7 PO (16:58)
[2022-12-23] MEDS ORDERED: PANT40TA51 MT (16:58)
[2022-12-23] MEDS ORDERED: SUCR1ORA15 NG (16:58)
[2022-12-23] MEDS ORDERED: COR3 PO (16:58)
[2022-12-23] MEDS ORDERED: MIDO5TAB4 PO (16:58)
== END 2022-12-23 22:30 | DRG 720 ==
LOC: ER 13:08 → EDBEDREQ 13:38 → EDBEDREQTM 13:38 → EDBEDREQ 14:34 → MICUSO 15:14 → EDBEDREQTM 15:17 → EDBEDREQ 15:17 → 3WST 21:33 → CVICU 12-08 10:43 → 3WST 12-16 15:07
PROVIDERS: ADMIT Internal Medicine; ATTEND Internal Medicine
PROC: 5A1955Z Respiratory Ventilation, Greater than 96 Consecutive Hours (ICD-10-PCS; principal; 2022-12-08)
PROC: 02HV33Z Insertion of Infusion Device into Superior Vena Cava, Percutaneous Approach (ICD-10-PCS; 2022-12-08)
PROC: B548ZZA Ultrasonography of Superior Vena Cava, Guidance (ICD-10-PCS; 2022-12-08)
PROC: 0BH17EZ Insertion of Endotracheal Airway into Trachea, Via Natural or Artificial Opening (ICD-10-PCS; 2022-12-08)
PROC: 30233N1 Transfusion of Nonautologous Red Blood Cells into Peripheral Vein, Percutaneous Approach (ICD-10-PCS; 2022-12-08)
PROC: 0DB78ZX Excision of Stomach, Pylorus, Via Natural or Artificial Opening Endoscopic, Diagnostic (ICD-10-PCS; 2022-12-09)
PROC: 30233K1 Transfusion of Nonautologous Frozen Plasma into Peripheral Vein, Percutaneous Approach (ICD-10-PCS; 2022-12-09)
PROC: 0W9G3ZZ Drainage of Peritoneal Cavity, Percutaneous Approach (ICD-10-PCS; 2022-12-09)
DX: A41.9 Sepsis, unspecified organism (principal); J96.00 Acute respiratory failure, unspecified whether with hypoxia or hypercapnia; E43 Unspecified severe protein-calorie malnutrition; E87.20 Acidosis, unspecified; D68.9 Coagulation defect, unspecified; E87.0 Hyperosmolality and hypernatremia; N17.9 Acute kidney failure, unspecified; E72.20 Disorder of urea cycle metabolism, unspecified; E87.3 Alkalosis; K76.82 Hepatic encephalopathy; E87.4 Mixed disorder of acid-base balance; M62.82 Rhabdomyolysis; E88.09 Other disorders of plasma-protein metabolism, not elsewhere classified; E11.9 Type 2 diabetes mellitus without complications; K74.60 Unspecified cirrhosis of liver; I10 Essential (primary) hypertension; E87.5 Hyperkalemia; D64.9 Anemia, unspecified; K52.9 Noninfective gastroenteritis and colitis, unspecified; Z20.822 Contact with and (suspected) exposure to COVID-19; R74.01 Elevation of levels of liver transaminase levels; R18.8 Other ascites; F10.10 Alcohol abuse, uncomplicated; Z78.1 Physical restraint status; Z82.49 Family history of ischemic heart disease and other diseases of the circulatory system
CPT/HCPCS: 36415; 36573; 36600; 49083; 70551; 71045; 74176; 76700; 80048; 80053; 80061; 80076; 80305; 80320; 81003; 82040; 82105; 82140; 82375; 82378; 82550; 82570; 82607; 82728; 82746; 82805; 82962; 83036; 83540; 83550; 83605; 83615; 83735; 83880; 84100; 84134; 84300; 84443; 84478; 84484; 85014; 85018; 85025; 85027; 86850; 86900; 86920; 86927; 87070; 87426; 88108; 88305; 92610; 93005; 93970; 94002; 94003; 94640; 97110; 97162; 97166; 97530; 99291; A6261; C1725; C9113; J0696; J1940; J2250; J2354; J2370; J2405; J2704; J2765; J3010; J3411; J3430; J3480; J3490; J7030; J7050; J7060; J7070; P9016; P9017; P9047; A4315; G0480